=== PATIENT | male | born 1980 | race Caucasian/White ===

== ENCOUNTER 2017-02-04 13:43 | Emergency (ER) | payer BC ==
[2017-02-04 13:56] VITALS: BP 147/80
[2017-02-04 15:00] LABS: CHLORIDE,CL 100 mmol/L (98-115); SODIUM,NA 138 mmol/L (136-145)
[2017-02-04] MEDS ORDERED: Ondansetron 4 MG/2 ML SDV IVPUSH ONE (15:05)
[2017-02-04] MEDS ORDERED: Morphine 4 MG/ML Syringe IVPUSH ONE (15:05)
--- NOTE | 2017-02-04 15:23 | EDM.PDOC ---
ED HPI GENERAL MEDICAL PROBLEM - General Chief Complaint: General Stated Complaint: abdominal pain Time Seen by Provider: 02/04/17 14:10 Source of Information: Reports: Patient History Limitations: Reports: No limitations - History of Present Illness INITIAL COMMENTS - FREE TEXT/NARRATIVE: Patient presents with abdominal pain that started last evening and has progressively worsened since then. He had laparoscopic cholecystectomy yesterday with DR. Hunter in [place]. He isn't aware of any complications during surgery. He says the pain is in the RUQ and radiates into his back, neck , retrosternum, umbilical and RLQ regions. He called the same-day surgery yesterday and they told him to make sure to take his pain medications. He took 3 tabs of his percocet but it didn't help at all. In the ER he vomited because of the severe pain. He had diarrhea this morning but is having difficulty voiding. He now rates his pain at 5-6 but it was 9-10/10 earlier. No fever. 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) Other Treatments WORKFORCE PLANNING ANALYST: percocet Abdominal Pain Score (Numeric/FACES): 9 - Related Data Allergies Allergy/AdvReac Type Severity Reaction Status Date / Time cephalexin [From Keflex] Allergy Rash Verified 02/04/17 13:53 Home Meds: Home Meds oxyCODONE HCl/Acetaminophen [oxyCODONE-Acetaminophen 5-325] 2 tab PO Q4HR PRN [History] Social & Family History - Tobacco Use Smoking Status *Q: Never Smoker Second Hand Smoke Exposure: No - Caffeine Use Caffeine Use: Reports: Coffee, Energy drinks, Soda - Alcohol Use Days Per Week of Alcohol Use: 2 Number of Drinks Per Day: 2 Total Drinks Per Week: 4 Date of Last Drink: 01/30/17 Time of Last Drink: 19:00 - Recreational Drug Use Recreational Drug Use: No ED ROS GENERAL - Review of Systems Review Of Systems: See Below Constitutional: Denies: fever, chills HEENT: Denies: Vertigo, Vision change Respiratory: Denies: Shortness of Breath, Cough Cardiovascular: Denies: Chest pain, Syncope GI/Abdominal: Reports: Abdominal pain. Denies: Constipation : Reports: urinary retention. Denies: dysuria Musculoskeletal: Reports: no symptoms Skin: Denies: cyanosis, jaundice, mottled, pallor, diaphoresis Neurological: Denies: Confusion, Dizziness, Headache, Seizure Psychiatric: Denies: Agitation, Confusion ED EXAM, GENERAL - Physical Exam Exam: See Below Exam Limited By: No limitations General Appearance: alert, WD/WN, moderate distress Eye Exam: bilateral eye: EOMI, normal inspection, PERRL Ears: normal external exam, hearing grossly normal Nose: normal inspection, no blood Throat/Mouth: Normal lips, Normal voice, No airway compromise Head: atraumatic, normocephalic Neck: full range of motion Respiratory/Chest: no respiratory distress, lungs clear, normal breath sounds, no accessory muscle use Cardiovascular: normal peripheral pulses, regular rate, rhythm, no murmur Peripheral Pulses: 2+: carotid (L), carotid (R), radial (L), radial (R), posterior tibial (L), posterior tibial (R) GI/Abdominal: rigid (right abdomen), tender (right quadrants and suprapubic), abnormal bowel sounds: (none in 10 seconds) Back Exam: CVA tenderness (R). No: CVA tenderness (L) Extremities: normal inspection, normal range of motion, non-tender, no pedal edema Neurological: alert, oriented, normal cognition, no motor/sensory deficits Psychiatric: normal affect, normal mood Skin Exam: Warm, Dry, Intact, No rash, Pallor (moderate in face) Course - Vital Signs Last Recorded V/S: Last Vital Signs Temp 98.0 F 02/04/17 13:54 Pulse 63 02/04/17 13:54 Resp 20 02/04/17 13:54 BP 147/80 H 02/04/17 13:54 Pulse Ox 95 02/04/17 13:54 - Orders/Labs/Meds Orders: Active Orders 24 hr Category Date Time Status Insert Urinary Catheter [OM.PC] Stat Care 02/04/17 15:30 Ordered Urinary Catheter Assessment [RC] ASDIRECTED Care 02/04/17 16:08 Active Abdomen Pelvis w Cont [CT] Stat Exams 02/04/17 14:41 Ordered Sodium Chloride 0.9% [Normal Saline] Med 02/04/17 15:45 Active 50 ml FLUSH ASDIRECTED Medication Orders Sodium Chloride (Normal Saline) 50 ml FLUSH ASDIRECTED [facility] Labs: Laboratory Tests 02/04/17 02/04/17 02/04/17 Range/Units 14:30 14:30 14:55 WBC 11.6 H (5.0-10.0) 10^3/uL RBC 4.46 L (4.50-6.00) 10^6/uL Hgb 12.8 L (13.0-17.0) g/dL Hct 37.1 L (40.0-52.0) % MCV 83.2 (82.0-92.0) fL MCH 28.7 (27.0-31.0) pg MCHC 34.5 (32.0-36.0) g/dL RDW 12.2 (11.5-14.5) % Plt Count 251 (150-300) 10^3/uL MPV 7.6 (7.4-10.4) fL Neut % (Auto) 86.2 H (50.0-70.0) % Lymph % (Auto) 5.1 L (20.0-40.0) % Rooks % (Auto) 5.9 (2.0-8.0) % Eos % (Auto) 0.8 L (1.0-3.0) % Baso % (Auto) 2.0 H (0.0-1.0) % Neut # (Auto) 10.0 H (2.5-7.0) 10^3/uL Lymph # (Auto) 0.6 L (1.0-4.0) 10^3/uL Rooks # (Auto) 0.7 (0.1-0.8) 10^3/uL Eos # (Auto) 0.1 (0.1-0.3) 10^3/uL Baso # (Auto) 0.2 H (0.0-0.1) 10^3/uL Sodium 138 (136-145) mmol/L Potassium 3.8 (3.3-5.3) mmol/L Chloride 100 (98-115) mmol/L Carbon Dioxide 35.0 H (21.0-32.0) mmol/L BUN 18 (6-25) mg/dL Creatinine 0.83 (0.51-1.17) mg/dL Est Cr Clr Drug Dosing 136.38 mL/min Estimated GFR (MDRD) > 60 mL/min Glucose 133 H (70-110) mg/dL Calcium 8.7 (8.7-10.3) mg/dL Total Bilirubin 0.6 (0.2-1.0) mg/dL AST 64 H (15-37) U/L ALT 100 H (12-78) U/L Alkaline Phosphatase 72 (46-116) IU/L C-Reactive Protein 1.9 H (0.0-0.9) mg/dL Total Protein 6.6 (6.4-8.2) g/dL Albumin 3.81 (3.00-4.80) g/dL Lipase 94 (73-393) U/L Specimen Type Urinblad Urine Color Nalini H (YELLOW) Urine Appearance Slightly cloudy H (CLEAR) Urine pH 5.0 (5.0-9.0) Ur Specific Newell >= 1.030 (1.005-1.030) Urine Protein Trace H (NEGATIVE) mg/dL Urine Glucose (UA) Negative (NEGATIVE) mg/dL Urine Ketones Trace H (NEGATIVE) mg/dL Urine Occult Blood Negative (NEGATIVE) Urine Nitrite Negative (NEGATIVE) Urine Bilirubin Small H (NEGATIVE) Urine Urobilinogen 1.0 (0.2-1.0) E.U./dL Ur Leukocyte Esterase Negative (NEGATIVE) Urine RBC 0-5 /HPF Urine WBC 0-5 /HPF Ur Epithelial Cells Rare /LPF Urine Bacteria Rare (NONE TO FEW) /HPF Meds: Medications Generic Name Dose Route Start Last Admin Trade Name Grabielq PRN Reason Stop Dose Admin Sodium Chloride 50 ml 02/04/17 15:45 Normal Saline FLUSH ASDIRECTED KARSON Discontinued Medications Generic Name Dose Route Start Last Admin Trade Name Rebecca PRN Reason Stop Dose Admin Hydromorphone HCl 1 mg 02/04/17 15:37 02/04/17 15:41 Dilaudid IVPUSH 02/04/17 15:38 1 mg ONETIME ONE Administration Iopamidol 75 ml 02/04/17 15:42 Isovue-300 (61%) IV 02/04/17 15:43 ONETIME ONE Morphine Sulfate 4 mg 02/04/17 15:05 02/04/17 15:20 Morphine IVPUSH 02/04/17 15:06 4 mg ONETIME ONE Administration Ondansetron HCl 4 mg 02/04/17 15:05 02/04/17 15:11 Zofran IVPUSH 02/04/17 15:06 4 mg ONETIME ONE Administration - Re-Assessments/Exams Free Text/Narrative Re-Assessment/Exam: 02/04/17 15:29 I called and talked with the PA that assisted Dr. Hunter in the surgery (Dr. Hunter unavailable). He confirmed no complications other than a small amount of spilled bile. We discussed possible etiologies including bleeding (ie. liver), pneumatosis from the laparoscope, ileus, etc. Will get CT. Bladder scan shows 300 cc but could only get out 150 with straight cath. Pain is worsening again so gave morphine 4 mg IV and Zofran 4 mg IV. 02/04/17 15:38 Greater than 20 minutes after morphine, pain is 7-8 and not responding so will give Dilaudid 1 mg. 02/04/17 16:39 Patient feeling much more comfortable after the Dilaudid. Pain at 2/10 now. Waiting results on the CT right now. 02/04/17 17:02 Radiologist called with report of free fluid in the pelvis consistent with bile leak. Discussed with Jasper Merritt the PA with Dr. Hunter and he advised to send patient to [facility] where they will evaluate him. Patient still feeling okay with pain control and I would not want to re-dose with Dilaudid before leaving in private vehicle. Patient is okay without any more pain control and will drive him to [place]. Pt stable at discharge and okay I feel for transfer via private vehicle. Departure - Departure Time of Disposition: 17:00 Disposition: DC/Tfer to Acute Hospital 02 Condition: good Clinical Impression: Free fluid in pelvis, S/P laparoscopic cholecystectomy Abdominal pain Qualifiers: Abdominal location: right upper quadrant Qualified Code(s): R10.11 - Right upper quadrant pain Forms: ED Department Discharge Additional Instructions: 1. Go to [facility] where the general surgeon will see you. - My Orders Last 24 Hours: My Active Orders 02/04/17 14:41 Abdomen Pelvis w Cont [CT] Stat 02/04/17 15:30 Insert Urinary Catheter [OM.PC] Stat 02/04/17 15:45 Sodium Chloride 0.9% [Normal Saline] 50 ml FLUSH ASDIRECTED 02/04/17 16:08 Urinary Catheter Assessment [RC] ASDIRECTED - Assessment/Plan Last 24 Hours: My Active Orders 02/04/17 14:41 Abdomen Pelvis w Cont [CT] Stat 02/04/17 15:30 Insert Urinary Catheter [OM.PC] Stat 02/04/17 15:45 Sodium Chloride 0.9% [Normal Saline] 50 ml FLUSH ASDIRECTED 02/04/17 16:08 Urinary Catheter Assessment [RC] ASDIRECTED
[2017-02-04] MEDS ORDERED: HYDROmorphone 1 MG/ML Syringe IVPUSH ONE (15:37)
[2017-02-04] MEDS ORDERED: Iopamidol 612 MG/ML 75 ML Bottle IV ONE (15:42)
[2017-02-04] MEDS ORDERED: Sodium Chloride 0.9% 50 ML SDV FLUSH SCH (15:45)
== END 2017-02-04 17:15 ==
LOC: KA.ED 13:43
DX: R10.11 Right upper quadrant pain (principal); Z90.49 Acquired absence of other specified parts of digestive tract
CPT/HCPCS: 36415; 51798; 74177; 80053; 81001; 83690; 85025; 86140; 96374; 96375; 99284; J1170; J2270; J2405; Q9967

== ENCOUNTER 2017-02-12 02:40 | Emergency (ER) | payer BC ==
[2017-02-12] MEDS ORDERED: Sodium Chloride 0.9% 1,000 ML ONE (03:04)
[2017-02-12] MEDS ORDERED: Sodium Chloride 0.9% 1,000 ML IV STA (03:10)
[2017-02-12] MEDS ORDERED: Sodium Chloride 0.9% 5 ML Syringe FLUSH PRN (03:10)
[2017-02-12] MEDS ORDERED: HYDROmorphone 1 MG/ML Syringe IVPUSH ONE ×4 (03:11→05:16)
[2017-02-12] MEDS ORDERED: Ondansetron 4 MG/2 ML SDV IVPUSH ONE (03:11)
[2017-02-12] MEDS ORDERED: Iopamidol 612 MG/ML 75 ML Bottle IV ONE (03:12)
[2017-02-12] MEDS ORDERED: Sodium Chloride 0.9% 50 ML SDV FLUSH SCH (03:15)
[2017-02-12] MEDS ORDERED: HYDROmorphone 1 MG/ML Syringe ONE ×2 (03:15→05:18)
[2017-02-12] MEDS ORDERED: Ondansetron 4 MG/2 ML SDV ONE (03:15)
--- NOTE | 2017-02-12 03:28 | EDM.PDOC ---
ED HPI GI/ABDOMINAL - General Chief Complaint: General Stated Complaint: left chest pain Time Seen by Provider: 02/12/17 03:06 Source of Information: Reports: Patient History Limitations: Reports: No limitations - History of Present Illness INITIAL COMMENTS - FREE TEXT/NARRATIVE: PT PRESENTS WITH ABD PAIN AND IVORY DRAIN NOT DRAINING SINCE THIS AFTERNOON. SEEN HERE 02/04/17 FOR SIMILAR COMPLAINT AND FOUND TO HAVE FREE FLUID IN ABD S/P LAP JUNIOR 2 DAYS BEFORE. SENT TO [place] AND UNDERWENT SURGERY AGAIN. IVORY DRAIN PLACED AT THAT TIME. NOW WITH LUQ PAIN. MOVING BOWELS AND DENIES BLOODY STOOL OR TESTICULAR PAIN. Symptom Onset Date: 02/12/17 Timing/Duration: Reports: Hour(s): Location: LUQ Quality: Reports: ache, fullness Severity: moderate Improves with: Reports: sitting up Worsens with: Reports: lying down Associated Symptoms: Reports: denies other symptoms. Denies: back pain, testicular pain, diarrhea, bloody stools, fever/chills - Related Data Allergies/ADRs: Allergies Allergy/AdvReac Type Severity Reaction Status Date / Time cephalexin [From Keflex] Allergy Rash Verified 02/12/17 04:35 Home Meds: Home Meds oxyCODONE HCl/Acetaminophen [oxyCODONE-Acetaminophen 5-325] 2 tab PO Q4HR PRN [History] Social & Family History - Tobacco Use Smoking Status *Q: Never Smoker Second Hand Smoke Exposure: No - Caffeine Use Caffeine Use: Reports: Coffee, Energy drinks, Soda - Alcohol Use Days Per Week of Alcohol Use: 2 Number of Drinks Per Day: 2 Total Drinks Per Week: 4 - Recreational Drug Use Recreational Drug Use: No ED ROS GENERAL - Review of Systems Review Of Systems: ROS reveals no pertinent complaints other than HPI. Constitutional: Reports: no symptoms HEENT: Reports: No symptoms Respiratory: Reports: No Symptoms Cardiovascular: Reports: No symptoms Endocrine: Reports: no symptoms GI/Abdominal: Reports: Abdominal pain : Reports: no symptoms Musculoskeletal: Reports: no symptoms Skin: Reports: no symptoms Neurological: Reports: No Symptoms Psychiatric: Reports: No symptoms Hematologic/Lymphatic: Reports: no symptoms Immunologic: Reports: no symptoms ED EXAM, GI/ABD - Physical Exam Exam: See Below Exam Limited By: No limitations General Appearance: alert, WD/WN, moderate distress Nose: normal inspection Throat/Mouth: Normal inspection, Normal oropharynx, No airway compromise Head: atraumatic, normocephalic Neck: normal inspection Respiratory/Chest: no respiratory distress, lungs clear, normal breath sounds, no accessory muscle use GI/Abdominal: hypoactive bowel sounds, tenderness, guarding. No: rebound, rigidity (Male) Exam: Normal inspection Back Exam: normal inspection. No: CVA tenderness (L), CVA tenderness (R) Extremities: normal inspection, no pedal edema Neurological: alert, oriented, normal cognition Psychiatric: normal affect, normal mood Skin Exam: Warm, Dry, Intact, Normal color, No rash Lymphatic: no adenopathy Course - Vital Signs Last Recorded V/S: Last Vital Signs Temp 98.2 F 02/12/17 03:00 Pulse 77 02/12/17 03:00 Resp 20 02/12/17 03:00 BP 147/83 H 02/12/17 03:00 Pulse Ox 97 02/12/17 03:00 - Orders/Labs/Meds Orders: Active Orders 24 hr Category Date Time Status Peripheral IV Care [RC] . DIRECTED Care 02/12/17 03:11 Active Abdomen Pelvis w Cont [CT] Stat Exams 02/12/17 03:10 Taken Sodium Chloride 0.9% [Normal Saline] Med 02/12/17 03:15 Active 50 ml FLUSH ASDIRECTED Sodium Chloride 0.9% [Syrex Flush] Med 02/12/17 03:10 Active 5 ml FLUSH Q8HR PRN Peripheral IV Insertion Adult [OM.PC] Stat Oth 02/12/17 03:10 Ordered Medication Orders Sodium Chloride (Syrex Flush) 5 ml FLUSH Q8HR PRN PRN Reason: Keep Vein Open Sodium Chloride (Normal Saline) 50 ml FLUSH ASDIRECTED [facility] Labs: Laboratory Tests 02/12/17 02/12/17 Range/Units 03:05 03:05 WBC 15.3 H (5.0-10.0) 10^3/uL RBC 4.75 (4.50-6.00) 10^6/uL Hgb 13.5 (13.0-17.0) g/dL Hct 39.3 L (40.0-52.0) % MCV 82.9 (82.0-92.0) fL MCH 28.4 (27.0-31.0) pg MCHC 34.2 (32.0-36.0) g/dL RDW 12.2 (11.5-14.5) % Plt Count 554 H (150-300) 10^3/uL MPV 6.8 L (7.4-10.4) fL Neut % (Auto) 60.1 (50.0-70.0) % Lymph % (Auto) 25.6 (20.0-40.0) % Rowan % (Auto) 10.0 H (2.0-8.0) % Eos % (Auto) 3.8 H (1.0-3.0) % Baso % (Auto) 0.5 (0.0-1.0) % Neut # (Auto) 9.2 H (2.5-7.0) 10^3/uL Lymph # (Auto) 3.9 (1.0-4.0) 10^3/uL Rowan # (Auto) 1.5 H (0.1-0.8) 10^3/uL Eos # (Auto) 0.6 H (0.1-0.3) 10^3/uL Baso # (Auto) 0.1 (0.0-0.1) 10^3/uL Sodium 142 (136-145) mmol/L Potassium 3.9 (3.3-5.3) mmol/L Chloride 100 (98-115) mmol/L Carbon Dioxide 33.3 H (21.0-32.0) mmol/L BUN 26 H (6-25) mg/dL Creatinine 0.82 (0.51-1.17) mg/dL Est Cr Clr Drug Dosing TNP Estimated GFR (MDRD) > 60 mL/min Glucose 111 H (70-110) mg/dL Calcium 8.7 (8.7-10.3) mg/dL Total Bilirubin 0.6 (0.2-1.0) mg/dL AST 54 H (15-37) U/L ALT 171 H (12-78) U/L Alkaline Phosphatase 92 (46-116) IU/L Total Protein 7.2 (6.4-8.2) g/dL Albumin 3.99 (3.00-4.80) g/dL Amylase 54 (25-125) U/L Lipase 128 (73-393) U/L Meds: Medications Generic Name Dose Route Start Last Admin Trade Name Fredelmi PRN Reason Stop Dose Admin Sodium Chloride 5 ml 02/12/17 03:10 Syrex Flush FLUSH Q8HR PRN Keep Vein Open Sodium Chloride 50 ml 02/12/17 03:15 Normal Saline FLUSH ASDIRECTED KARSON Discontinued Medications Generic Name Dose Route Start Last Admin Trade Name Rebecca PRN Reason Stop Dose Admin Hydromorphone HCl 1 mg 02/12/17 03:11 Dilaudid IVPUSH 02/12/17 03:12 ONETIME ONE Hydromorphone HCl Confirm 02/12/17 03:15 Dilaudid Administered 02/12/17 03:16 Dose 1 mg .ROUTE .STK-MED ONE Hydromorphone HCl 1 mg 02/12/17 03:51 Dilaudid IVPUSH 02/12/17 03:52 ONETIME ONE Hydromorphone HCl 0.5 mg 02/12/17 04:30 Dilaudid IVPUSH 02/12/17 04:31 ONETIME ONE Sodium Chloride Confirm 02/12/17 03:04 Normal Saline Administered 02/12/17 03:05 Dose 1,000 mls @ as directed .ROUTE .STK-MED ONE Sodium Chloride 1,000 mls @ 1,000 mls/hr 02/12/17 03:10 Normal Saline IV 02/12/17 04:09 .BOLUS STA Iopamidol 75 ml 02/12/17 03:12 Isovue-300 (61%) IV 02/12/17 03:13 ONETIME ONE Ondansetron HCl 4 mg 02/12/17 03:11 Zofran IVPUSH 02/12/17 03:12 ONETIME ONE Ondansetron HCl Confirm 02/12/17 03:15 Zofran Administered 02/12/17 03:16 Dose 4 mg .ROUTE .STK-MED ONE - Radiology Interpretation Free Text/Narrative:: CT ABD/PELVIS SHOWS ABSCESS VS HEMATOMA, ASCITES AND FLUID IN PELVIS CT Results Date: 02/12/17 CT Results Time: 05:00 - Re-Assessments/Exams Free Text/Narrative Re-Assessment/Exam: 02/12/17 05:15 PT AFEBRILE, PAIN CONTROLLED. DISCUSSED CASE WITH DR IGNACIO, ER AT [facility]. WILL ACCEPT TRANSFER OF CARE Departure - Departure Time of Disposition: :17 Disposition: DC/Tfer to Acute Hospital 02 Condition: serious Clinical Impression: Pelvic fluid collection Abdominal pain Qualifiers: Abdominal location: generalized Qualified Code(s): R10.84 - Generalized abdominal pain Forms: ED Department Discharge - Problem List Review Problem List Initiated/Reviewed/Updated: Yes - My Orders Last 24 Hours: My Active Orders 02/12/17 03:10 Abdomen Pelvis w Cont [CT] Stat Sodium Chloride 0.9% [Syrex Flush] 5 ml FLUSH Q8HR PRN Peripheral IV Insertion Adult [OM.PC] Stat 02/12/17 03:11 Peripheral IV Care [RC] . DIRECTED 02/12/17 03:15 Sodium Chloride 0.9% [Normal Saline] 50 ml FLUSH ASDIRECTED - Assessment/Plan Last 24 Hours: My Active Orders 02/12/17 03:10 Abdomen Pelvis w Cont [CT] Stat Sodium Chloride 0.9% [Syrex Flush] 5 ml FLUSH Q8HR PRN Peripheral IV Insertion Adult [OM.PC] Stat 02/12/17 03:11 Peripheral IV Care [RC] . DIRECTED 02/12/17 03:15 Sodium Chloride 0.9% [Normal Saline] 50 ml FLUSH ASDIRECTED Assessment:: ABDOMINAL PAIN Plan: TRANSFER TO [facility] IN [place]
[2017-02-12 03:30] LABS: CHLORIDE,CL 100 mmol/L (98-115); SODIUM,NA 142 mmol/L (136-145)
[2017-02-12] MEDS ORDERED: Sodium Chloride 0.9% 1,000 ML IV ONE (05:00)
[2017-02-12] MEDS ORDERED: Sodium Chloride 0.9% 1,000 ML IV SCH (06:00)
[2017-02-12] MEDS ORDERED: LORazepam 2 MG/ML MDV ONE (06:39)
[2017-02-12] MEDS ORDERED: Metoclopramide 10 MG/2 ML SDV IVPUSH ONE (06:40)
[2017-02-12] MEDS ORDERED: LORazepam 2 MG/ML MDV IVPUSH ONE (06:40)
[2017-02-12] MEDS: Metoclopramide 10 MG/2 ML SDV ONE ×2 (06:45→06:54)
[2017-02-12 07:14] VITALS: BP 150/77
== END 2017-02-12 06:50 ==
LOC: KA.ED 02:40
DX: R10.84 Generalized abdominal pain (principal); R18.8 Other ascites; R10.12 Left upper quadrant pain; Z88.1 Allergy status to other antibiotic agents
CPT/HCPCS: 74177; 80053; 82150; 83690; 85025; 96361; 96374; 96375; 96376; 99285; J1170; J2060; J2405; J2765; J7030; Q9967